=== PATIENT | male | born 1960 | race Caucasian/White ===

== ENCOUNTER 2018-12-31 07:55 | Inpatient (IN) | payer OTHER ==
[~2018-12-31] VITALS: Ht 177.8 cm; Wt 95.7 kg
[2018-12-31] VITALS (27 sets, daily range): BP systolic 100–142; BP diastolic 60–87; PULSE 95–106; RESP 10–20; Ht 177.8 cm; Wt 95.7 kg
[~2018-12-31 07:55] MED LIST: ATOR-2 PO; CYCL10TA7 PO; GLIM2TAB PO; LACTATED RINGER'S 1,000 ML IV* SCH; METF100010 PO; OLME40TA13 PO; PROPOFOL 200 MG INJ ONE
[2018-12-31] MEDS ORDERED: GABA300C16 PO (09:52)
[2018-12-31] MEDS ORDERED: HYDR2TAB36 PO (09:54)
[2018-12-31] MEDS ORDERED: BUDE6HFA INHALATION (09:54)
[2018-12-31] MEDS ORDERED: METF-849 PO (09:55)
[2018-12-31] MEDS ORDERED: OLME40TA13 PO (09:55)
[2018-12-31] MEDS ORDERED: GELATIN SIZE 100 SPONGE ONE (10:38)
[2018-12-31] MEDS ORDERED: POLYMYXIN/BACITRACIN 1L IRRIG ONE (10:38)
[2018-12-31] MEDS ORDERED: BUPIVACAINE 0.5%/EPI (SDV) 30 ML INJ ONE (10:38)
[2018-12-31] MEDS ORDERED: THROMBIN (BOVINE) 5,000 UNIT VIAL TP ONE ×3 (10:38→14:10)
--- NOTE | 2018-12-31 11:07 | HPN ---
Date/Time of Note Date/Time of Note DATE: 12/31/18 TIME: 11:07 Interval H&P Admission Note Pt. seen H&P reviewed: No system changes MARISELA TOLBERT MD Dec 31, 2018 11:07
--- NOTE | 2018-12-31 11:24 | PREAC ---
Date/Time of Note Date/Time of Note DATE: 12/31/18 TIME: 11:22 Anesthesia Eval and Record Evaluation Time Pre-Procedure Interview DATE: 12/31/18 TIME: 11:22 Age 58 Sex male NPO: 8 hrs Preoperative diagnosis L4-L5 Lt lumbar stenosis Planned procedure L4-L5 Decompression Past Medical History Past Medical History: Includes Cardio: HTN, Dyslipidemia Endo: Diabetes GI: Morbid obesity Surgery & Anesthesia Issues No known issue Meds Anticoagulation: No Beta Clemente within 24 hr: No Reason Beta Clemente not given: Pt. not on B-Clemente Reported Medications Metformin* (Glucophage*) 500 Mg Tab, 1000 MG PO WITH BREAKFAST DINNE, #30 TAB 12/31/18 Olmesartan Medoxomil (Benicar) 40 Mg Tablet, 40 MG PO DAILY, #30 TAB 12/31/18 Budesonide-Formoterol Fumarate* (Symbicort*) 160-4.5 Hfa.aer.ad, 2 PUFF INHALATION BID, #1 EACH 12/31/18 Hydromorphone Hcl* (Dilaudid*) 2 Mg Tablet, 2 MG PO Q4H PRN for PAIN LEVEL 7-10, TAB 12/31/18 Gabapentin* (Gabapentin*) 300 Mg Capsule, 600 MG PO TID, #180 CAP 12/31/18 Glimepiride* (Glimepiride*) 2 Mg Tablet, 2 MG PO BID, TAB 10/29/18 Cyclobenzaprine Hcl* (Cyclobenzaprine Hcl*) 10 Mg Tablet, 10 MG PO TID, #90 TAB 10/29/18 Atorvastatin* (Atorvastatin*) 80 Mg Tablet, 80 MG PO QHS, #30 TAB 10/29/18 Discontinued Reported Medications Olmesartan Medoxomil (Benicar) 40 Mg Tablet, 40 MG PO DAILY, #30 TAB 10/29/18 Metformin Hcl* (Metformin Hcl*) 1,000 Mg Tablet, 1000 MG PO WITH BREAKFAST DINNE, #60 TAB 10/29/18 Current Medications Lactated Ringer's 1,000 ml @ 0 mls/hr Q0M IV* Last administered on 12/31/18at 10:21; Admin Dose 30 MLS/HR; Start 12/31/18 at 06:00; Stop 12/31/18 at 16:00 Meds reviewed: Yes Allergies Coded Allergies: Penicillins (Verified Allergy, Mild, 4/5/19) erythromycin base (Verified Allergy, Mild, 12/31/18) Allergies Reviewed: Yes Labs/Studies Labs Reviewed: Reviewed by anesthesiologist test: N/A Studies: ECG Pre-procedure Exam Last vitals Vital Signs Date Temp Pulse Resp B/P (MAP) Pulse Ox O2 O2 Flow FiO2 Time Delivery Rate 12/31/18 97.5 103 16 114/67 98 Room Air 10:10 (83) Airway: Adequate mouth opening, Adequate thyromental dist Mallampati: Mallampati III Teeth: Normal Lung: Normal Heart: Normal ASA Physical Status ASA physical status: 3 Emergency: None Planned Anesthetic General/MAC: ETT Planned Pain Management Parenteral pain med, Local by surgeon Pre-operative Attestations Prior to commencing anesthesia and surgery, the patient was re-evaluated, there was verification of: *The patient's identity *The results of appropriate recent lab work and preoperative vital signs *The above evaluation not changing prior to induction *Anesthetic plan, risk benefits, alternative and complications discussed with patient/family; questions answered; patient/family understands, accepts and wishes to proceed. MAEVE DODGE MD Dec 31, 2018 11:24
[2018-12-31] MEDS ORDERED: MIDAZOLAM 1 MG/ML 2 ML INJ ONE (11:28)
[2018-12-31] MEDS ORDERED: PHENYLephrine 10 MG INJ ONE (11:55)
[2018-12-31] MEDS ORDERED: BETAMET NA PHOS/AC(6 MG/ML) 5ML INJ ONE (13:46)
[2018-12-31] MEDS ORDERED: CEFAZOLIN 1 GM INJ ONE (14:26)
[2018-12-31] MEDS ORDERED: LIDOCAINE 2% (SDV) 5 ML INJ ONE (14:26)
[2018-12-31] MEDS ORDERED: ETOMIDATE 20 MG INJ ONE (14:26)
[2018-12-31] MEDS ORDERED: ROCURONIUM 50 MG INJ ONE (14:26)
[2018-12-31] MEDS ORDERED: ONDANSETRON 4 MG INJ ONE (14:29)
--- NOTE | 2018-12-31 14:59 | OPR ---
Date/Time of Note Date/Time of Note DATE: 12/31/18 TIME: 14:49 Operative Report Free Text/Dictation DATE OF OPERATION: 12/31/2018 PREOPERATIVE DIAGNOSES: 1. Recurrent left sided L5-S1 subarticular stenosis with foraminal herniation with L5 and S1 radiculopathy POSTOPERATIVE DIAGNOSES: 1. Recurrent left sided L5-S1 subarticular stenosis with foraminal disk herniation with L5 and S1 radiculopathy OPERATION PERFORMED: 1. Revision Left sided L5-S1 hemilaminectomy, medial facetectomy and foraminotomy 2. Left L5-S1 microdiscectomy 3. Interpretation of neuromonitoring SURGEON: Marisela Tolbert MD CHANGE MANAGEMENT ADMINISTRATOR: ARNAUD Lloyd ANESTHESIA: General endotracheal ESTIMATED BLOOD LOSS: 35 mL SURGICAL INDICATION: The patient is a 58 year-old male who presents with a history of left lower extremity pain and weakness. He has a past medical history significant for a Left sided L5-S1 decompression 40 years ago and a ALIF L4-S1 w/ PSIF 6 weeks ago. After the L4-S1 ALIF procedure he was found to have weakness and pain in the left lower extremity that failed to improve with a conservative treatment course. The patient had failed conservative treatment. Risks, benefits, and alternatives to revision left sided L5-S1 decompression and microdiscectomy were explained to the patient and they wished to proceed. Risks explained included but were not exclusive of bleeding, infection, cauda equina syndrome, nerve injury, dural tear, iatrogenic instability, recurrent disc herniation, fracture, vascular injury, bowel injury, stroke, heart attack and pulmonary embolism. DESCRIPTION OF TECHNIQUE: The patient was identified in the preoperative area and taken to the operating room. Rapid induction of general endotracheal anesthesia was performed. The patient was given 2 g of cefazolin for prophylaxis. The patient was then placed in the prone position on the Aly frame on a Denzel flat top table with all prominences well padded. The back was prepped and draped in the usual sterile manner. Using a spinal needle and intraoperative fluoroscopy, the appropriate level was clearly identified (L5- S1). The skin was injected using 0.5% Marcaine with epinephrine. Longitudinal midline incision was then created using a 10 blade. Further dissection through soft tissue was performed using electrocautery down to the spinous processes. The dissection was taken down the left side of the lamina and over the facet joint capsule. A self-retaining retractor was applied. Again, intraoperative fluoroscopy confirmed the appropriate level (L5-S1). The microscope was brought into use for microdissection. This case is was a revision case so an additional 60 minutes was taken for exposure and dissection due to adherent scar tissue at the prior surgical site. A series of curretes were used to identify the prior laminotomy site and resect the adherent scar tissue to the dura and traversing nerve root at the left L5- S1. The left L5 lamina was resected using a high-speed bur. A series of kerris ons were used to perform a revision sandra-lamencotomy, medial facetectomy and foraminotomy at L5-S1 on the left. The dura and exiting L5 nerve root were both directly visualized. These were retracted gently retracted. Immediately, the foraminal disc protrusion was noted. The pseudo anulus was incised using an 11 blade. Several loose fragments of disk were removed. These were removed back to a stable portion of the disk. The disk space was further pressurized using a using normal saline through a syringe to ensure that no loose fragments remained behind. Palpation with a ball-tip probe did not reveal any further stenosis. The traversing S1 nerve root and exiting L5 nerev root were noted to be significantly decompressed. Meticulous attention was paid towards hemostasis using FloSeal as well as Gelfoam and thrombin. Care was taken to remove all FloSeal and Gelfoam prior to wound closure. A medium hemovac was placed. The fascia was then closed using 1 Vicryl in an interrupted fashion. Subcutaneous tissue was closed using 2-0 Vicryl in an interrupted fashion. The skin was closed using 3-0 nylon stich. The wound was dressed using a 4x4 sterile gauze. The patient was returned to the supine position. He was extubated immediately postoperatively and taken to the recovery room in stable condition. Procedure Date: Dec 31, 2018 Preoperative Diagnosis 1. Recurrent left sided L5-S1 subarticular stenosis with foraminal herniation with L5 and S1 radiculopathy Postoperative Diagnosis 1. Recurrent left sided L5-S1 subarticular stenosis with foraminal herniation with L5 and S1 radiculopathy Operation/Procedure Performed 1. Revision Left sided L5-S1 hemilaminectomy, medial facetectomy and foraminotomy 2. Left L5-S1 microdiscectomy 3. Interpretation of neuromonitoring Surgeon see signature line Disc Recordist ARNAUD Lloyd Anesthesia Type: general Estimated Blood Loss: 10 - 50 ml's Transfusion none Specimen Left L5-S1 disk Grafts/Implants none Tubes/Drains Medium hemovac Complications none Pt Condition Post Procedure: stable Disposition: PACU Procedure Description DESCRIPTION OF TECHNIQUE: The patient was identified in the preoperative area and taken to the operating room. Rapid induction of general endotracheal anesthesia was performed. The patient was given 2 g of cefazolin for prophylaxis. The patient was then placed in the prone position on the Aly frame on a Denzel flat top table with all prominences well padded. The back was prepped and draped in the usual sterile manner. Using a spinal needle and intraoperative fluoroscopy, the appropriate level was clearly identified (L5- S1). The skin was injected using 0.5% Marcaine with epinephrine. Longitudinal midline incision was then created using a 10 blade. Further dissection through soft tissue was performed using electrocautery down to the spinous processes. The dissection was taken down the left side of the lamina and over the facet joint capsule. A self-retaining retractor was applied. Again, intraoperative fluoroscopy confirmed the appropriate level (L5-S1). The microscope was brought into use for microdissection. This case is was a revision case so an additional 60 minutes was taken for exposure and dissection due to adherent scar tissue at the prior surgical site. A series of curretes were used to identify the prior laminotomy site and resect the adherent scar tissue to the dura and traversing nerve root at the left L5- S1. The left L5 lamina was resected using a high-speed bur. A series of kerrison s were used to perform a revision sandra-lamencotomy, medial facetectomy and foraminotomy at L5-S1 on the left. The dura and exiting L5 nerve root were both directly visualized. These were retracted gently retracted. Immediately, the foraminal disc protrusion was noted. The pseudo anulus was incised using an 11 blade. Several loose fragments of disk were removed. These were removed back to a stable portion of the disk. The disk space was further pressurized using a using normal saline through a syringe to ensure that no loose fragments remained behind. Palpation with a ball-tip probe did not reveal any further stenosis. The traversing S1 nerve root and exiting L5 nerev root were noted to be significantly decompressed. Meticulous attention was paid towards hemostasis using FloSeal as well as Gelfoam and thrombin. Care was taken to remove all FloSeal and Gelfoam prior to wound closure. A medium hemovac was placed. The fascia was then closed using 1 Vicryl in an interrupted fashion. Subcutaneous tissue was closed using 2-0 Vicryl in an interrupted fashion. The skin was closed using 3-0 nylon stich. The wound was dressed using a 4x4 sterile gauze. The patient was returned to the supine position. He was extubated immediately postoperatively and taken to the recovery room in stable condition. MARISELA TOLBERT MD Dec 31, 2018 14:59
[2018-12-31] MEDS ORDERED: NALOXONE (0.4 MG/ML) INJ IV PRN (15:00)
[2018-12-31] MEDS ORDERED: ACETAMINOPHEN 325 MG TAB PO PRN (15:00)
[2018-12-31] MEDS ORDERED: NACL 0.9% 3 ML SYG IV SCH (15:00)
[2018-12-31] MEDS ORDERED: HYDROmorphONE 0.2 MG/ML PCA IV SCH (15:00)
[2018-12-31] MEDS ORDERED: AL HYDROX/MG HYDROX/SIMETH 30 ML CUP PO PRN (15:00)
[2018-12-31] MEDS ORDERED: PROCHLORPERAZINE 10 MG TAB PO PRN (15:00)
--- NOTE | 2018-12-31 15:03 | PAC ---
Date/Time of Note Date/Time of Note DATE: 12/31/18 TIME: 15:03 Post-Anesthesia Notes Post-Anesthesia Note Last documented vital signs Vital Signs Date Temp Pulse Resp B/P (MAP) Pulse Ox O2 O2 Flow FiO2 Time Delivery Rate 12/31/18 97.5 103 16 114/67 98 Room Air 10:10 (83) Activity: WNL Respiratory function: WNL Cardiovascular function: WNL Mental status: Baseline Pain reasonably controlled: Yes Hydration appropriate: Yes Nausea/Vomiting absent: Yes Comments BP:118/78, P:98, Spo2:100%, T:98,8 MAEVE DODGE MD Dec 31, 2018 15:03
[2018-12-31] MEDS ORDERED: METOCLOPRAMIDE 10 MG INJ IV PRN (15:30)
[2018-12-31] MEDS ORDERED: LABETALOL HCL 20MG INJ IV PRN (15:30)
[2018-12-31] MEDS ORDERED: MEPERIDINE 25 MG INJ IV PRN (15:30)
[2018-12-31] MEDS ORDERED: HYDROmorphONE 1 MG/5 ML IV SYRINGE IV PRN ×2 (15:30)
[2018-12-31] MEDS ORDERED: hydrALAzine 20 MG INJ IV PRN (15:30)
[2018-12-31] MEDS ORDERED: ONDANSETRON 4 MG INJ IV PRN (15:30)
[2018-12-31] MEDS ORDERED: DIPHENHYDRAMINE 50 MG INJ IV PRN (15:30)
[2018-12-31] MEDS ORDERED: FENTAnyl 50 MCG/ML VIAL IV PRN (15:30)
[2018-12-31] MEDS: ONDANSETRON 4 MG INJ IV PRN (16:22)
[2018-12-31] MEDS: CEFAZOLIN 1 GM/50 ML (PMX) 50 ML IVPB SCH (17:41)
[2018-12-31] MEDS: SOD CHLORIDE 0.9% 1,000 ML IV SCH (18:17)
[2018-12-31] MEDS ORDERED: GLUCAGON 1 MG INJ IM PRN (18:30)
[2018-12-31] MEDS ORDERED: GLUCOSE GEL 15 GRAM TUBE PO PRN ×2 (18:30)
[2018-12-31] MEDS ORDERED: DEXTROSE 50% 50 ML SYRINGE IV PRN ×2 (18:30)
[2018-12-31] MEDS ORDERED: GLUCOSE GEL 15 GRAM TUBE BUCCAL PRN (18:30)
[2018-12-31] MEDS: ATORVASTATIN 80 MG TAB PO SCH (21:30)
[2018-12-31] MEDS: GABAPENTIN 300 MG CAP PO SCH (21:30)
[2018-12-31] MEDS: ACETAMINOPHEN 1000MG/100ML IV 100 ML IVPB SCH (22:07)
[2019-01-01] MEDS: CEFAZOLIN 1 GM/50 ML (PMX) 50 ML IVPB SCH ×3 (00:31→13:05)
[2019-01-01] MEDS: ACCU-CHEK XX SCH (02:00)
--- NOTE | 2019-01-01 03:42 | CONS ---
DATE OF ADMISSION: 12/31/2018 DATE OF CONSULTATION: 12/31/[address] Tolbert: Thank you very much for allowing me to evaluate this 58-year-old male who just underwent lumbar back surgery. HISTORICAL EVENTS: As you well know, this patient did undergo prior low back surgery on 10/29/2018 w ith resolution of his back pain. Because of persistent left lower extremity pain and intermittent nu mbness, it was felt that repeat surgical intervention needed. Postoperatively, he admits to some mil d nausea and has had no vomiting thus far. He denies abdominal pain, cough, wheezing, shortness of b reath, or chest pain. PAST MEDICAL HISTORY: Includes gastroesophageal reflux, hyperlipidemia, hypertension, coronary arter y disease, antecedent left shoulder surgery, right knee surgery, inguinal hernia repair, history of c arpal tunnel repair, history of diabetes, history of coronary artery disease, prior smoker. He did h ave a stress study a year ago. MEDICATIONS PRIOR TO ADMISSION: 1. Atorvastatin 80 mg. 2. Cyclobenzaprine 10 mg t.i.d. 3. Gabapentin 600 mg t.i.d. 4. Glimepiride 2 mg 2 tablets every morning. 5. Metformin 500 mg 2 tablets b.i.d. 6. Olmesartan 1 tablet per day. ALLERGIES: 1. PENICILLIN. 2. AZITHROMYCIN. FAMILY HISTORY: Positive for coronary artery disease and DVT as well as stomach cancer. PHYSICAL EXAMINATION: GENERAL: [place] male, no acute distress. VITAL SIGNS: Blood pressure 128/80, pulse 70, respirations were 18. He was afebrile. EYES: Extraocular muscles were full. NOSE, MOUTH, AND THROAT: Normal. NECK: Supple. There was no jugular venous distention, thyroid enlargement or adenopathy. Carotids 2+. LUNGS: Clear. HEART: Rhythm regular, no murmur. ABDOMEN: Not distended. Liver and spleen were not palpable. No tenderness. EXTREMITIES: No edema. Calves nontender. NEUROLOGIC: No lateralizing motor weakness. IMPRESSION AND PLAN: 1. Doing well postoperatively except for mild anesthesia related nausea. 2. History of diabetes. We will monitor sugars a.c. t.i.d. and cover with short-acting insulin. 3. History of hypertension. We will resume his antihypertensive therapy and monitor blood pressure throughout. 4. We will follow him daily and observe for signs and symptoms of thromboembolic disease. Dictated By: ANA PETTY/SUZANNE Conf#: [id number] DID#: [id number] CC: ANA NICOLE MD; MARISELA TOLBERT MD;*EndCC*
[2019-01-01] MEDS: ACETAMINOPHEN 1000MG/100ML IV 100 ML IVPB SCH ×3 (04:31→16:00)
[2019-01-01 05:30] VITALS: BP 121/76; PULSE 96; RESP 18
[2019-01-01] MEDS: SOD CHLORIDE 0.9% 1,000 ML IV SCH ×2 (06:55→19:00)
[2019-01-01] MEDS: INSULIN ASPART [NOVOLOG] 3 ML PEN SC SCH ×3 (08:00→17:38)
[2019-01-01 08:17] VITALS: BP 130/77; PULSE 89; RESP 18
[2019-01-01] MEDS: GABAPENTIN 300 MG CAP PO SCH ×3 (08:49→20:45)
[2019-01-01] MEDS: DOCUSATE SODIUM 100 MG CAP PO SCH ×2 (08:49→20:45)
[2019-01-01] MEDS: metFORMIN 500 MG TAB PO SCH ×2 (08:49→17:37)
[2019-01-01] MEDS: LOSARTAN 50 MG TAB PO SCH (08:50)
[2019-01-01] MEDS ORDERED: HYDROmorphONE 0.5 MG/0.5 ML SYG IV PRN (10:00)
[2019-01-01] MEDS: ONDANSETRON 4 MG INJ IV PRN (10:38)
--- NOTE | 2019-01-01 13:51 | CONS ---
Assessment/Plan Assessment/Plan Assessment/Plan (Daily) 1. HTN - normotensive, cont current regimen 2. DM - glucose within normal range, cont SSI 3. Post op mgmt per Dr. Montesinos, PT today and hope to remove tai Consultation Date/Type/Reason Admit Date/Time Dec 31, 2018 at 07:55 Initial Consult Date Date/Time of Note DATE: 01/01/19 TIME: 13:48 24 HR Interval Summary Free Text/Dictation Radiculopathy has resolved after surgery, however still feels like he is numb and weak in his L leg. About to work with PT. BP and glucose within goal Exam/Review of Systems Exam Vitals Vital Signs Date Temp Pulse Resp B/P (MAP) Pulse Ox O2 O2 Flow FiO2 Time Delivery Rate 01/01/19 16 09:00 01/01/19 98.0 89 130/77 96 Room Air 08:17 (94) 12/31/18 2.0 16:33 Intake and Output 12/31/18 12/31/18 01/01/19 1515:00 23:00 07:00 IntakeIntake Total 1400 ml 342 ml 1640 ml OutputOutput Total 605 ml 120 ml 1420 ml BalanceBalance 795 ml 222 ml 220 ml Head: normocephalic, atraumatic Respiratory: clear to auscultation, normal air movement Cardiovascular: regular rate and rhythm, nl pulses Gastrointestinal: soft, nl liver, spleen, non-tender Neurological: CREDIT BALANCE SPECIALIST II-XII intact, nl mental status, nl speech, other (strength LLE 3/5) Results Result Diagram: 01/01/19 0451 01/01/19 0451 Results 24hrs Laboratory Tests Test 12/31/18 21:47 01/01/19 04:51 01/01/19 06:55 01/01/19 08:42 Bedside Glucose 153 133 Hemoglobin 10.9 L Hematocrit 33.2 #L Sodium Level 139 Potassium Level 4.3 Chloride Level 100 Carbon Dioxide Level 33 H Anion Gap 6 Blood Urea Nitrogen 18 Creatinine 1.08 Est Glomerular > 60 Filtrat Rate mL/min Glucose Level 140 Calcium Level 8.6 Phosphorus Level 6.1 H Magnesium Level 1.4 L Lab Scanned Report REFERENCE LAB Test 01/01/19 12:59 Bedside Glucose 143 Medications Medication Current Medications Prochlorperazine (Compazine) 10 mg Q4H PRN PO NAUSEA/VOMITING; Start 4/5/19 at 15:00 Ondansetron HCl (Zofran Inj) 4 mg Q6H PRN IV NAUSEA/VOMITING Last administered on 01/01/19 10:38; Admin Dose 4 MG; Start 12/31/18 at 15:00 Al Hydrox/Mg Hydrox/Simethicone (Mag-Al Plus) 15 ml Q4H PRN PO .CONSTIPATION; Start 12/31/18 at 15:00 Docusate Sodium (Colace) 100 mg BID PO Last administered on 01/01/19 08:49; Admin Dose 100 MG; Start 01/01/19 at 09:00 Acetaminophen (Tylenol Tab) 650 mg Q4H PRN PO TEMP GREATER THAN 101F OR MELGOZA; Start 12/31/18 at 15:00 IV Flush (NS 3 ml) 3 ml PER PROTOCOL IV ; Start 12/31/18 at 15:00 Hydromorphone HCl (Dilaudid CLINICAL LABORATORY SCIENCE PROFESSOR) Q4PCA IV Last administered on 12/31/18 15:23; Admin Dose 6 MG; Start 12/31/18 at 15:00 Naloxone HCl (Narcan) 0.2 mg Q2M PRN IV RR 8 BREATHS/MIN OR LESS; Start 12/31/18 at 15:00 Atorvastatin Calcium (Lipitor) 80 mg QHS PO Last administered on 12/31/18 21:3 0; Admin Dose 80 MG; Start 12/31/18 at 21:00 Metformin HCl (Glucophage) 1,000 mg WITH BREAKFAST DINNE PO Last administered on 01/01/19 08:49; Admin Dose 1,000 MG; Start 01/01/19 at 07:55 Losartan Potassium (Cozaar) 100 mg DAILY PO Last administered on 01/01/19 08:50; Admin Dose 100 MG; Start 01/01/19 at 09:00 Sodium Chloride 1,000 ml @ 80 mls/hr [id number] IV Last administered on 01/01/19 06:55; Admin Dose 80 MLS/HR; Start 12/31/18 at 18:00 Gabapentin (Neurontin) 300 mg TID PO Last administered on 01/01/19 13:05; Admin Dose 300 MG; Start 12/31/18 at 21:00 Diagnostic Test (Pha) (Accu-Chek) 1 ea 02 XX ; Start 01/01/19 at 02:00 Insulin Aspart (Novolog Insulin Pen) NOVOLOG *MILD* ALGORITHM AC MEALS SC Last administered on 01/01/19at 13:08; Admin Dose 1 UNIT; Start 01/01/19 at 07:20 Miscellaneous Information 1 ea NOTE XX ; Start 12/31/18 at 18:30 Glucose (Glutose) 15 gm Q15M PRN PO DECREASED GLUCOSE; Start 12/31/18 at 18:30 Glucose (Glutose) 22.5 gm Q15M PRN PO DECREASED GLUCOSE; Start 12/31/18 at 18:30 Dextrose (D50w Syringe) 25 ml Q15M PRN IV DECREASED GLUCOSE; Start 12/31/18 at 18:30 Dextrose (D50w Syringe) 50 ml Q15M PRN IV DECREASED GLUCOSE; Start 12/31/18 at 18:30 Glucagon (Glucagen) 1 mg Q15M PRN IM DECREASED GLUCOSE; Start 12/31/18 at 18:30 Glucose (Glutose) 15 gm Q15M PRN BUCCAL DECREASED GLUCOSE; Start 12/31/18 at 18:30 Acetaminophen 100 ml @ 400 mls/hr Q6H IVPB Last administered on 01/01/19at 04:31; Admin Dose 400 MLS/HR; Start 12/31/18 at 22:00; Stop 01/01/19 at 21:59 Oxycodone/ Acetaminophen (Endocet (10/ 325)) 1 tab Q4H PRN PO MODERATE PAIN LEVEL 4-6; Start 01/01/19 at 10:00 Hydromorphone HCl (Dilaudid) 0.5 mg Q3H PRN IV SEVERE PAIN LEVEL 7-10; Start 01/01/19 at 10:00 EUNICE GOMEZ MD Jan 01, 2019 13:51
[2019-01-01 14:00] VITALS: BP 122/75; PULSE 88; RESP 18
[2019-01-01] MEDS: OXYCODONE/ACETAMINOPHEN (10/325) TAB PO PRN ×3 (15:40→23:48)
[2019-01-01] MEDS: CYCLOBENZAPRINE 10 MG TAB PO PRN (17:15)
[2019-01-01 20:04] VITALS: BP 155/78; PULSE 82; RESP 18
[2019-01-01] MEDS: ATORVASTATIN 80 MG TAB PO SCH (20:45)
[2019-01-02] MEDS: CYCLOBENZAPRINE 10 MG TAB PO PRN (01:40)
[2019-01-02] MEDS: ACCU-CHEK XX SCH (02:00)
[2019-01-02 02:24] VITALS: BP 145/71; PULSE 80; RESP 20
[2019-01-02] MEDS: OXYCODONE/ACETAMINOPHEN (10/325) TAB PO PRN ×2 (05:52→11:05)
[2019-01-02] MEDS: SOD CHLORIDE 0.9% 1,000 ML IV SCH (07:30)
[2019-01-02 08:12] VITALS: BP 136/85; PULSE 98; RESP 17
[2019-01-02] MEDS: DOCUSATE SODIUM 100 MG CAP PO SCH (08:30)
[2019-01-02] MEDS: GABAPENTIN 300 MG CAP PO SCH ×2 (08:31→12:43)
[2019-01-02] MEDS: LOSARTAN 50 MG TAB PO SCH (08:31)
[2019-01-02] MEDS: INSULIN ASPART [NOVOLOG] 3 ML PEN SC SCH ×2 (08:34→12:44)
[2019-01-02] MEDS: metFORMIN 500 MG TAB PO SCH (08:34)
--- NOTE | 2019-01-02 10:25 | CONS ---
Assessment/Plan Assessment/Plan Assessment/Plan (Daily) 1. post spine surgery. stable 2. HTN - normotensive, cont home meds 3. DM - glucose controlled. Cont home meds stable for d/c from medical standpoint once drain remove. Dispo per Dr. Montesinos. Consultation Date/Type/Reason Admit Date/Time Dec 31, 2018 at 07:55 Initial Consult Date Date/Time of Note DATE: 01/02/19 TIME: 10:24 24 HR Interval Summary Free Text/Dictation still having decreased strength LLE, but pain has not recurred. Did work with PT yesterday, able to ambulate to restroom by himself this AM. tai out. BP and glucose stable. Exam/Review of Systems Exam Vitals Vital Signs Date Temp Pulse Resp B/P (MAP) Pulse Ox O2 O2 Flow FiO2 Time Delivery Rate 01/02/19 97.5 98 17 136/85 93 08:12 (102) 01/02/19 Room Air 02:24 12/31/18 2.0 16:33 Intake and Output 01/01/19 01/01/19 01/02/19 1515:00 23:00 07:00 IntakeIntake Total 50 ml 2330 ml 500 ml OutputOutput Total 60 ml 30 ml BalanceBalance -10 ml 2330 ml 470 ml Respiratory: clear to auscultation, normal air movement Cardiovascular: regular rate and rhythm, nl pulses Gastrointestinal: soft, nl liver, spleen, non-tender Neurological: CHEESE PANCAKE ROLLER II-XII intact Results Result Diagram: 01/01/19 0451 01/01/19 0451 Results 24hrs Laboratory Tests Test 01/01/19 12:59 01/01/19 17:29 01/02/19 08:29 Bedside Glucose 143 152 149 Medications Medication Current Medications Prochlorperazine (Compazine) 10 mg Q4H PRN PO NAUSEA/VOMITING; Start 12/31/18 at 15:00 Ondansetron HCl (Zofran Inj) 4 mg Q6H PRN IV NAUSEA/VOMITING Last administered on 01/01/19at 10:38; Admin Dose 4 MG; Start 12/31/18 at 15:00 Al Hydrox/Mg Hydrox/Simethicone (Mag-Al Plus) 15 ml Q4H PRN PO .CONSTIPATION; Start 12/31/18 at 15:00 Docusate Sodium (Colace) 100 mg BID PO Last administered on 01/02/19 08:30; Admin Dose 100 MG; Start 01/01/19 at 09:00 Acetaminophen (Tylenol Tab) 650 mg Q4H PRN PO TEMP GREATER THAN 101F OR MELGOZA; Start 12/31/18 at 15:00 IV Flush (NS 3 ml) 3 ml PER PROTOCOL IV ; Start 12/31/18 at 15:00 Naloxone HCl (Narcan) 0.2 mg Q2M PRN IV RR 8 BREATHS/MIN OR LESS; Start 12/31/18 at 15:00 Atorvastatin Calcium (Lipitor) 80 mg QHS PO Last administered on 01/01/19at 20:45; Admin Dose 80 MG; Start 12/31/18 at 21:00 Metformin HCl (Glucophage) 1,000 mg WITH BREAKFAST DINNE PO Last administered on 01/02/19 08:34; Admin Dose 1,000 MG; Start 01/01/19 at 07:55 Losartan Potassium (Cozaar) 100 mg DAILY PO Last administered on 01/02/19 08:31; Admin Dose 100 MG; Start 01/01/19 at 09:00 Sodium Chloride 1,000 ml @ 80 mls/hr [id number] IV Last administered on 01/01/19 06:55; Admin Dose 80 MLS/HR; Start 12/31/18 at 18:00 Gabapentin (Neurontin) 300 mg TID PO Last administered on 01/02/19 08:31; Admin Dose 300 MG; Start 12/31/18 at 21:00 Diagnostic Test (Pha) (Accu-Chek) 1 ea 02 XX ; Start 01/01/19 at 02:00 Insulin Aspart (Novolog Insulin Pen) NOVOLOG *MILD* ALGORITHM AC MEALS SC Last administered on 01/02/19 08:34; Admin Dose 1 UNIT; Start 01/01/19 at 07:20 Miscellaneous Information 1 ea NOTE XX ; Start 12/31/18 at 18:30 Glucose (Glutose) 15 gm Q15M PRN PO DECREASED GLUCOSE; Start 12/31/18 at 18:30 Glucose (Glutose) 22.5 gm Q15M PRN PO DECREASED GLUCOSE; Start 12/31/18 at 18:30 Dextrose (D50w Syringe) 25 ml Q15M PRN IV DECREASED GLUCOSE; Start 12/31/18 at 18:30 Dextrose (D50w Syringe) 50 ml Q15M PRN IV DECREASED GLUCOSE; Start 12/31/18 at 18:30 Glucagon (Glucagen) 1 mg Q15M PRN IM DECREASED GLUCOSE; Start 12/31/18 at 18:30 Glucose (Glutose) 15 gm Q15M PRN BUCCAL DECREASED GLUCOSE; Start 12/31/18 at 18:30 Oxycodone/ Acetaminophen (Endocet ()) 1 tab Q4H PRN PO MODERATE PAIN LEVEL 4-6 Last administered on 01/02/19at 05:52; Admin Dose 1 TAB; Start 01/01/19 at 10:00 Hydromorphone HCl (Dilaudid) 0.5 mg Q3H PRN IV SEVERE PAIN LEVEL 7-10; Start 01/01/19 at 10:00 Cyclobenzaprine HCl (Flexeril) 10 mg Q8 PRN PO MUSCLE SPASMS Last administered on 01/02/19at 01:40; Admin Dose 10 MG; Start 01/01/19 at 17:00 EUNICE GOMEZ MD Jan 02, 2019 10:25
--- NOTE | 2019-01-02 12:26 | PDOCDIS ---
Discharge Instructions CONDITION [id number] Patient Condition: [id number] Good HOME CARE INSTRUCTIONS: [id number] Diet Instructions: [id number] Regular ACTIVITY: [id number] Activity Restrictions: [id number] Slowly Increase Activity Rest between Activity Avoid heavy lifting Do not Drive Do not operate Machinery Do not operate Power Tool Avoid Heavy Housework [id number] Bathing Restrictions: [id number] Shower FOLLOW UP/APPOINTMENTS Follow-up Plan Follow-up with Dr. Tolbert in 2 weeks MARISELA TOLBERT MD Jan 02, 2019 12:26
--- NOTE | 2019-01-02 12:40 | CONS ---
Consultation Date/Type/Reason Admit Date/Time Dec 31, 2018 at 07:55 Initial Consult Date Date/Time of Note DATE: 01/02/19 TIME: 12:37 24 HR Interval Summary Free Text/Dictation Pain controlled w/ PO percocet. No acute events over night. Significant improvement in left leg pain. Continued improvement in strength in Left TA. Still having some muscle spasms and anterior gabriel pain which is improving. Drain w/ 30 cc output over-night. Cleared for D/C by medicine and PT. Plan for d/c home today. Drain was d/c today. Exam/Review of Systems Exam Vitals Vital Signs Date Temp Pulse Resp B/P (MAP) Pulse Ox O2 O2 Flow FiO2 Time Delivery Rate 01/02/19 97.5 98 17 136/85 93 08:12 (102) 01/02/19 Room Air 02:24 12/31/18 2.0 16:33 Intake and Output 01/01/19 01/01/19 01/02/19 1515:00 23:00 07:00 IntakeIntake Total 50 ml 2330 ml 500 ml OutputOutput Total 60 ml 30 ml BalanceBalance -10 ml 2330 ml 470 ml Results Result Diagram: 01/01/19 0451 01/01/19 0451 Results 24hrs Laboratory Tests Test 01/01/19 12:59 01/01/19 17:29 01/02/19 08:29 Bedside Glucose 143 152 149 Medications Medication Current Medications Prochlorperazine (Compazine) 10 mg Q4H PRN PO NAUSEA/VOMITING; Start 12/31/18 at 15:00 Ondansetron HCl (Zofran Inj) 4 mg Q6H PRN IV NAUSEA/VOMITING Last administered on 01/01/19at 10:38; Admin Dose 4 MG; Start 12/31/18 at 15:00 Al Hydrox/Mg Hydrox/Simethicone (Mag-Al Plus) 15 ml Q4H PRN PO .CONSTIPATION; Start 12/31/18 at 15:00 Docusate Sodium (Colace) 100 mg BID PO Last administered on 01/02/19at 08:30; Admin Dose 100 MG; Start 01/01/19 at 09:00 Acetaminophen (Tylenol Tab) 650 mg Q4H PRN PO TEMP GREATER THAN 101F OR MELGOZA; Start 12/31/18 at 15:00 IV Flush (NS 3 ml) 3 ml PER PROTOCOL IV ; Start 12/31/18 at 15:00 Naloxone HCl (Narcan) 0.2 mg Q2M PRN IV RR 8 BREATHS/MIN OR LESS; Start 12/31/18 at 15:00 Atorvastatin Calcium (Lipitor) 80 mg QHS PO Last administered on 01/01/19at 20:45; Admin Dose 80 MG; Start 12/31/18 at 21:00 Metformin HCl (Glucophage) 1,000 mg WITH BREAKFAST DINNE PO Last administered on 01/02/19 08:34; Admin Dose 1,000 MG; Start 01/01/19 at 07:55 Losartan Potassium (Cozaar) 100 mg DAILY PO Last administered on 01/02/19 08:31; Admin Dose 100 MG; Start 01/01/19 at 09:00 Sodium Chloride 1,000 ml @ 80 mls/hr [id number] IV Last administered on 01/01/19 06:55; Admin Dose 80 MLS/HR; Start 12/31/18 at 18:00 Gabapentin (Neurontin) 300 mg TID PO Last administered on 01/02/19 08:31; Admin Dose 300 MG; Start 12/31/18 at 21:00 Diagnostic Test (Pha) (Accu-Chek) 1 ea 02 XX ; Start 01/01/19 at 02:00 Insulin Aspart (Novolog Insulin Pen) NOVOLOG *MILD* ALGORITHM AC MEALS SC Last administered on 01/02/19 08:34; Admin Dose 1 UNIT; Start 01/01/19 at 07:20 Miscellaneous Information 1 ea NOTE XX ; Start 12/31/18 at 18:30 Glucose (Glutose) 15 gm Q15M PRN PO DECREASED GLUCOSE; Start 12/31/18 at 18:30 Glucose (Glutose) 22.5 gm Q15M PRN PO DECREASED GLUCOSE; Start 12/31/18 at 18:30 Dextrose (D50w Syringe) 25 ml Q15M PRN IV DECREASED GLUCOSE; Start 12/31/18 at 18:30 Dextrose (D50w Syringe) 50 ml Q15M PRN IV DECREASED GLUCOSE; Start 12/31/18 at 18:30 Glucagon (Glucagen) 1 mg Q15M PRN IM DECREASED GLUCOSE; Start 12/31/18 at 18:30 Glucose (Glutose) 15 gm Q15M PRN BUCCAL DECREASED GLUCOSE; Start 12/31/18 at 18:30 Oxycodone/ Acetaminophen (Endocet ()) 1 tab Q4H PRN PO MODERATE PAIN LEVEL 4-6 Last administered on 01/02/19at 11:05; Admin Dose 1 TAB; Start 01/01/19 at 10:00 Hydromorphone HCl (Dilaudid) 0.5 mg Q3H PRN IV SEVERE PAIN LEVEL 7-10; Start 01/01/19 at 10:00 Cyclobenzaprine HCl (Flexeril) 10 mg Q8 PRN PO MUSCLE SPASMS Last administered on 01/02/19at 01:40; Admin Dose 10 MG; Start 01/01/19 at 17:00 MARISELA TOLBERT MD Jan 02, 2019 12:40
[2019-01-02 14:21] VITALS: BP 141/78; PULSE 104; RESP 18
== END 2019-01-02 15:50 | disposition home or self-care (01) | DRG 520 ==
LOC: REC 07:55 → MS1 16:14
PROVIDERS: ADMIT Orthopaedic Surgery; ATTEND Orthopaedic Surgery
PROC: 01NB0ZZ Release Lumbar Nerve, Open Approach (ICD-10-PCS; 2018-12-31)
PROC: 0SB40ZZ Excision of Lumbosacral Disc, Open Approach (ICD-10-PCS; principal; 2018-12-31 11:30)
DX: M48.061 Spinal stenosis, lumbar region without neurogenic claudication (principal); M51.17 Intervertebral disc disorders with radiculopathy, lumbosacral region; I10 Essential (primary) hypertension; K21.9 Gastro-esophageal reflux disease without esophagitis; E78.5 Hyperlipidemia, unspecified; I25.10 Atherosclerotic heart disease of native coronary artery without angina pectoris; E11.9 Type 2 diabetes mellitus without complications; Z79.84 Long term (current) use of oral hypoglycemic drugs; Z87.891 Personal history of nicotine dependence; Z88.0 Allergy status to penicillin
CPT/HCPCS: 72110; 80048; 82962; 83735; 84100; 85014; 85018; 87086; 88304; 97110; 97116; 97162; 97530; J0131; J0690; J0702; J1170; J1815; J2250; J2405; J3010; J7030